=== PATIENT | male | born 1950 | race Caucasian/White ===

== ENCOUNTER 2018-06-19 11:08 | Emergency (ER) | payer MEDICARE, OTHER ==
[~2018-06-19] VITALS: Ht 686.1 cm; Wt 108.0 kg
[~2018-06-19 11:08] MED LIST: ASCO500C15 PO; CHOL100044 PO; DUTA0.5C40 PO; ESTR30GE TP; MULT-1179 PO; NADO20TA PO; OMEG1CAP2 PO; TERA2CAP4 PO; TORS20TA3 PO; [UNRECOGNIZED DRUG - CODE] PO
[2018-06-19 11:36] LABS: BASOPHILS % (AUTO) 0.1 % (0-1); EOSINOPHILS # (AUTO) 0.2 X10'3 (0-0.9); HEMATOCRIT 45.3 % (42.0-52.0); HEMOGLOBIN 15.8 g/dl (14.0-17.9); LYMPHOCYTES # (AUTO) 0.9 X10'3 (1.1-4.8); LYMPHOCYTES % (AUTO) 12.7 % (21-51); MEAN CORPUSCULAR HEMOGLOBIN 31.9 PG (27.0-31.0); MEAN CORPUSCULAR HGB CONC 34.8 % (33.0-36.5); MEAN CORPUSCULAR VOLUME 91.7 FL (78-98); MEAN PLATELET VOLUME 7.8 FL (7.4-10.4); MONOCYTES # (AUTO) 0.6 X10'3 (0-0.9); MONOCYTES % (AUTO) 8.1 % (2-12); NEUTROPHILS # (AUTO) 5.5 X10'3 (1.8-7.7); NEUTROPHILS % (AUTO) 76.1 % (42-75); PLATELET COUNT 225 X10'3 (140-440); RED BLOOD COUNT 4.94 X10'6 (4.70-6.10); RED CELL DISTRIBUTION WIDTH 13.9 % (11.5-14.5); WHITE BLOOD COUNT 7.2 X10'3 (4.5-11.0)
[2018-06-19 11:47] LABS: PARTIAL THROMBOPLASTIN TIME 28 SECONDS (22-32); PROTHROMBIN TIME 10.6 SECONDS (9.0-12.0)
[2018-06-19 12:04] LABS: ALANINE AMINOTRANSFERASE 26 U/L (12-78); ALBUMIN 3.5 G/DL (3.4-5.0); ALBUMIN/GLOBULIN RATIO 1.1 (1.1-1.5); ALKALINE PHOSPHATASE 63 IU/L (46-116); ANION GAP 7 (8-16); ASPARTATE AMINO TRANSFERASE 20 U/L (10-37); BILIRUBIN,TOTAL 0.9 MG/DL (0.1-1.0); BLOOD UREA NITROGEN 14 MG/DL (7-18); BUN/CREATININE RATIO 9.7 (5.4-32.0); CALCIUM 8.8 MG/DL (8.5-10.1); CHLORIDE 101 MMOL/L (99-107); CREATININE 1.44 MG/DL (0.60-1.10); GLUCOSE 97 MG/DL (70-104); MAGNESIUM 1.9 MG/DL (1.5-2.4); POTASSIUM 4.4 MMOL/L (3.5-5.1); SODIUM 132 MMOL/L (135-145); TOTAL PROTEIN 6.7 G/DL (6.4-8.2); eGFR 49 ML/MIN
[2018-06-19 13:27] VITALS: BP 114/64
== END 2018-06-19 13:29 | disposition home or self-care (01) ==
LOC: ER 11:08
DX: R07.89 Other chest pain (principal); I48.91 Unspecified atrial fibrillation; Z98.890 Other specified postprocedural states; Z88.0 Allergy status to penicillin; Z88.2 Allergy status to sulfonamides; Z79.899 Other long term (current) drug therapy
CPT/HCPCS: 36415; 71045; 80053; 83735; 84484; 85025; 85610; 85730; 93005; 99285

== ENCOUNTER 2020-02-02 08:22 | Observation (INO) | payer MEDICARE, OTHER ==
[~2020-02-02] VITALS: Ht 198.1 cm; Wt 102.0 kg
[2020-02-02 08:58] LABS: EOSINOPHILS # (AUTO) 0.3 X10'3 (0-0.9); HEMATOCRIT 42.7 % (42.0-52.0); NEUTROPHILS # (AUTO) 6.5 X10'3 (1.8-7.7)
[2020-02-02 09:00] LABS: BASOPHILS # (AUTO) 0.1 X10'3 (0-0.2); BASOPHILS % (AUTO) 0.9 % (0-1); EOSINOPHILS % (AUTO) 3.3 % (0-6); HEMOGLOBIN 14.8 g/dl (14.0-17.9); LYMPHOCYTES % (AUTO) 12.2 % (21-51); MEAN CORPUSCULAR HEMOGLOBIN 32.4 PG (27.0-31.0); MEAN CORPUSCULAR HGB CONC 34.7 g/dL (33.0-36.5); MEAN CORPUSCULAR VOLUME 93.3 FL (78-98); MEAN PLATELET VOLUME 8.7 FL (7.4-10.4); MONOCYTES # (AUTO) 0.6 X10'3 (0-0.9); MONOCYTES % (AUTO) 7.6 % (2-12); PLATELET COUNT 216 X10'3 (140-440); RED BLOOD COUNT 4.58 X10'6 (4.70-6.10); RED CELL DISTRIBUTION WIDTH 13.5 % (11.5-14.5); WHITE BLOOD COUNT 8.5 X10'3 (4.5-11.0)
[2020-02-02 09:15] LABS: ALANINE AMINOTRANSFERASE 17 U/L (12-78); ALBUMIN 3.6 G/DL (3.4-5.0); ALBUMIN/GLOBULIN RATIO 1.3 (1.1-1.5); ALKALINE PHOSPHATASE 62 IU/L (46-116); ANION GAP 7 (8-16); ASPARTATE AMINO TRANSFERASE 21 U/L (10-37); BILIRUBIN,TOTAL 0.6 MG/DL (0.1-1.0); BLOOD UREA NITROGEN 19 MG/DL (7-18); BUN/CREATININE RATIO 11.7 (5.4-32.0); CALCIUM 8.3 MG/DL (8.5-10.1); CHLORIDE 101 MMOL/L (99-107); CREATININE 1.62 MG/DL (0.60-1.10); GLUCOSE 110 MG/DL (70-104); POTASSIUM 3.9 MMOL/L (3.5-5.1); SODIUM 134 MMOL/L (135-145); TOTAL CARBON DIOXIDE 25.7 MMOL/L (24-32); TOTAL PROTEIN 6.4 G/DL (6.4-8.2); eGFR 42 ML/MIN
[2020-02-02] MEDS ORDERED: normal saline 1000ml 1,000 ML IV ONE (09:30)
[2020-02-02 09:31] LABS: MAGNESIUM 2.2 MG/DL (1.5-2.4)
[2020-02-02] MEDS ORDERED: morphine 2 MG/ML inj. syringe IV PRN ×2 (10:55)
[2020-02-02] MEDS ORDERED: magnesium hydroxide 30ml (MOM) UD suspension PO PRN (10:55)
[2020-02-02] MEDS ORDERED: HYDROcodone/acetaminophen 5mg/325mg tablet PO PRN (10:55)
[2020-02-02] MEDS ORDERED: acetaminophen 325mg tablet PO PRN (10:55)
[2020-02-02] MEDS ORDERED: mag hydrox/Alum hydrox/simeth 30ml oral suspension PO PRN (10:55)
[2020-02-02] MEDS ORDERED: ondansetron/PF 4mg/2ml inj IV PRN (10:55)
[2020-02-02] MEDS ORDERED: MAGNESIUM TAURATE PO (11:51)
[2020-02-02] MEDS ORDERED: [UNRECOGNIZED DRUG - CODE] PO (11:56)
[2020-02-02] MEDS ORDERED: ATEN50TA41 PO (11:58)
[2020-02-02] MEDS ORDERED: APIX5TAB3 PO (11:59)
[2020-02-02] MEDS ORDERED: FURO-149 PO (12:00)
[2020-02-02 12:15] VITALS: BP 105/67
[2020-02-02] MEDS: ESTRADIOL 1 MG TOP SCH (14:40)
[2020-02-02] MEDS: DISOPYRAMIDE PO SCH ×3 (14:40→21:00)
[2020-02-02 15:00] VITALS: BP 115/96
--- NOTE | 2020-02-02 17:52 | NUR ---
Patient in room PCU 3014. I have received report from OSBALDO Fall RN and had the opportunity to ask questions and assume patient care.
[2020-02-02 18:00] VITALS: BP 108/63
--- NOTE | 2020-02-02 18:39 | NUR ---
Problems reprioritized. Patient report given, questions answered & plan of care reviewed with RAYMOND Trujillo.
--- NOTE | 2020-02-02 18:40 | NUR ---
Patient in room PCU 3014. I have received report from Nancy ANDRADE and had the opportunity to ask questions and assume patient care.
[2020-02-02 19:05] LABS: CLARITY,URINE CLEAR (Clear); COLOR,URINE YELLOW (Yellow); GLUCOSE, URINE NEGATIVE (Neg); KETONES,URINE NEGATIVE (Neg); LEUKOCYTE ESTERASE ,URINE NEGATIVE (Neg); NITRITES, URINE NEGATIVE (Neg); OCCULT BLOOD,URINE NEGATIVE (Neg); PROTEIN,URINE NEGATIVE (Neg); UROBILINOGEN,URINE 0.2 E.U/dL (0.2-1.0)
[2020-02-02 19:06] LABS: UA COLLECTION TYPE CLN CATCH MIDSTREAM
[2020-02-02] MEDS: dutasteride 0.5 MG capsule PO SCH (20:00)
[2020-02-02] MEDS: furosemide 40mg tablet PO SCH (20:18)
[2020-02-02] MEDS: apixaban 5mg tablet PO SCH (20:18)
[2020-02-02] MEDS ORDERED: magnesium oxide 400mg tablet PO SCH (20:30)
[2020-02-02] MEDS ORDERED: MAGNESIUM TAURATE PO SCH (21:00)
[2020-02-02 22:00] VITALS: BP 95/61
[2020-02-02] MEDS: magnesium Cl slow-release 64mg tablet PO SCH (22:30)
[2020-02-03 02:00] VITALS: BP 90/54
--- NOTE | 2020-02-03 06:20 | NUR ---
Problems reprioritized. Patient report given, questions answered & plan of care reviewed with Heather ANDRADE.
--- NOTE | 2020-02-03 06:25 | NUR ---
Patient in room PCU 3014A. I have received report from Cassandra ANDRADE and had the opportunity to ask questions and assume patient care.
[2020-02-03 06:30] VITALS: BP 92/49
[2020-02-03 06:30] LABS: ANION GAP 7 (8-16); BLOOD UREA NITROGEN 20 MG/DL (7-18); BUN/CREATININE RATIO 12.2 (5.4-32.0); CALCIUM 8.4 MG/DL (8.5-10.1); CHLORIDE 102 MMOL/L (99-107); CREATININE 1.64 MG/DL (0.60-1.10); GLUCOSE 96 MG/DL (70-104); POTASSIUM 3.6 MMOL/L (3.5-5.1); SODIUM 135 MMOL/L (135-145); TOTAL CARBON DIOXIDE 25.7 MMOL/L (24-32); eGFR 42 ML/MIN
[2020-02-03 06:32] LABS: BASOPHILS # (AUTO) 0.1 X10'3 (0-0.2); BASOPHILS % (AUTO) 0.7 % (0-1); EOSINOPHILS # (AUTO) 0.4 X10'3 (0-0.9); EOSINOPHILS % (AUTO) 4.1 % (0-6); HEMATOCRIT 38.5 % (42.0-52.0); HEMOGLOBIN 13.3 g/dl (14.0-17.9); LYMPHOCYTES # (AUTO) 1.6 X10'3 (1.1-4.8); LYMPHOCYTES % (AUTO) 14.6 % (21-51); MEAN CORPUSCULAR HEMOGLOBIN 32.2 PG (27.0-31.0); MEAN CORPUSCULAR HGB CONC 34.6 g/dL (33.0-36.5); MEAN CORPUSCULAR VOLUME 92.9 FL (78-98); MEAN PLATELET VOLUME 9.5 FL (7.4-10.4); MONOCYTES # (AUTO) 0.9 X10'3 (0-0.9); MONOCYTES % (AUTO) 8.5 % (2-12); NEUTROPHILS # (AUTO) 7.9 X10'3 (1.8-7.7); NEUTROPHILS % (AUTO) 72.1 % (42-75); PLATELET COUNT 216 X10'3 (140-440); RED BLOOD COUNT 4.15 X10'6 (4.70-6.10); RED CELL DISTRIBUTION WIDTH 13.3 % (11.5-14.5)
[2020-02-03] MEDS: magnesium Cl slow-release 64mg tablet PO SCH (07:42)
[2020-02-03] MEDS: furosemide 40mg tablet PO SCH ×2 (07:42→07:46)
[2020-02-03] MEDS: dutasteride 0.5 MG capsule PO SCH (07:43)
[2020-02-03] MEDS: apixaban 5mg tablet PO SCH (07:44)
[2020-02-03] MEDS: DISOPYRAMIDE PO SCH (07:46)
[2020-02-03] MEDS: ESTRADIOL 1 MG TOP SCH (07:46)
[2020-02-03] MEDS ORDERED: ascorbic acid 500mg tablet PO SCH (08:00)
[2020-02-03] MEDS ORDERED: vitamin D (cholecalciferol) 1,000 unit tablet PO SCH (08:00)
[2020-02-03] MEDS ORDERED: Terazosin 1mg capsule PO SCH (08:00)
[2020-02-03] MEDS ORDERED: multivitamins, therapeutics tablet PO SCH (08:00)
--- NOTE | 2020-02-03 09:50 | NUR ---
Per MD, patient stable for discharge home. Discharge packet given to patient and education provided. Pt instructed to not take Atenolol anymore due to heart rate. Dr Garnica said that cardiology office will contact patient on Tuesday to schedule pacemaker procedure. IV removed with catheter intact and tele monitor returned to [facility] [employer] [facility]. All belongings sent with patient. Patient escorted from hospital via wheelchair accompanied by and staff, and driven home via private vehicle.
[2020-02-03] MEDS ORDERED: magnesium Cl slow-release 64mg tablet PO SCH (20:30)
== END 2020-02-03 09:45 | disposition home or self-care (01) ==
LOC: ER 08:24 → ED HOLD 10:53 → UNDOADMOB 11:29 → EDBEDREQ 11:46 → ED HOLD 12:25 → PCU 3S 12:25
PROVIDERS: ADMIT Internal Medicine; ATTEND Internal Medicine
DX: R00.1 Bradycardia, unspecified (principal); R42 Dizziness and giddiness; I12.9 Hypertensive chronic kidney disease with stage 1 through stage 4 chronic kidney disease, or unspecified chronic kidney disease; N18.9 Chronic kidney disease, unspecified; I48.0 Paroxysmal atrial fibrillation; G47.00 Insomnia, unspecified; N40.0 Benign prostatic hyperplasia without lower urinary tract symptoms; Z79.01 Long term (current) use of anticoagulants; Z79.899 Other long term (current) drug therapy; Z88.0 Allergy status to penicillin; Z88.2 Allergy status to sulfonamides; Z91.048 Other nonmedicinal substance allergy status
CPT/HCPCS: 36415; 71045; 80048; 80053; 81003; 83735; 83880; 84443; 84484; 85025; 85610; 93005; 96360; 99285; G0378; J7030

== ENCOUNTER 2021-02-07 10:27 | Emergency (ER) | payer MEDICARE, OTHER ==
[~2021-02-07] VITALS: Ht 195.6 cm; Wt 102.8 kg
[~2021-02-07 10:27] MED LIST changes: +APIX5TAB3 PO; -ASCO500C15 PO; +ASCO500C18 PO; +FURO-149 PO; +MAGNESIUM TAURATE PO; -NADO20TA PO; -OMEG1CAP2 PO; -TORS20TA3 PO; +[UNRECOGNIZED DRUG - CODE] PO; -[UNRECOGNIZED DRUG - CODE] PO
[2021-02-07] MEDS ORDERED: metoprolol tartrate 50mg tablet PO ONE (11:00)
[2021-02-07] MEDS ORDERED: metoprolol tartrate 25mg tablet PO ONE (11:10)
[2021-02-07 11:44] LABS: BASOPHILS # (AUTO) 0.1 X10'3 (0-0.2); BASOPHILS % (AUTO) 0.9 % (0-1); EOSINOPHILS # (AUTO) 0.3 X10'3 (0-0.9); EOSINOPHILS % (AUTO) 3.8 % (0-6); LYMPHOCYTES # (AUTO) 0.9 X10'3 (1.1-4.8); LYMPHOCYTES % (AUTO) 13.5 % (21-51); MEAN CORPUSCULAR HEMOGLOBIN 30.6 PG (27.0-31.0); MEAN CORPUSCULAR VOLUME 90.1 FL (78-98); MEAN PLATELET VOLUME 8.4 FL (7.4-10.4); MONOCYTES # (AUTO) 0.5 X10'3 (0-0.9); NEUTROPHILS # (AUTO) 4.8 X10'3 (1.8-7.7); NEUTROPHILS % (AUTO) 73.8 % (42-75); PLATELET COUNT 221 X10'3 (140-440); RED BLOOD COUNT 4.89 X10'6 (4.70-6.10); RED CELL DISTRIBUTION WIDTH 13.5 % (11.5-14.5); WHITE BLOOD COUNT 6.5 X10'3 (4.5-11.0)
[2021-02-07 11:56] LABS: ALANINE AMINOTRANSFERASE 19 U/L (12-78); ALBUMIN 3.6 G/DL (3.4-5.0); ALBUMIN/GLOBULIN RATIO 1.2 (1.1-1.5); ALKALINE PHOSPHATASE 73 IU/L (46-116); ANION GAP 8 (8-16); ASPARTATE AMINO TRANSFERASE 17 U/L (10-37); BILIRUBIN,TOTAL 0.6 MG/DL (0.1-1.0); BLOOD UREA NITROGEN 12 MG/DL (7-18); CALCIUM 8.7 MG/DL (8.5-10.1); CHLORIDE 104 MMOL/L (99-107); CREATININE 1.34 MG/DL (0.60-1.10); GLUCOSE 104 MG/DL (70-104); POTASSIUM 4.3 MMOL/L (3.5-5.1); SODIUM 140 MMOL/L (135-145); TOTAL CARBON DIOXIDE 28.1 MMOL/L (24-32); TOTAL PROTEIN 6.7 G/DL (6.4-8.2); eGFR 53 ML/MIN
[2021-02-07] MEDS ORDERED: METO50TA7 PO (12:38)
[2021-02-07 12:51] VITALS: BP 124/79
== END 2021-02-07 12:54 | disposition home or self-care (01) ==
LOC: ER 10:27
DX: I48.92 Unspecified atrial flutter (principal); R42 Dizziness and giddiness; R20.0 Anesthesia of skin; I48.91 Unspecified atrial fibrillation; G47.30 Sleep apnea, unspecified; G47.00 Insomnia, unspecified; Z85.9 Personal history of malignant neoplasm, unspecified; Z98.890 Other specified postprocedural states; Z88.0 Allergy status to penicillin; Z88.2 Allergy status to sulfonamides; Z91.041 Radiographic dye allergy status; Z79.899 Other long term (current) drug therapy
CPT/HCPCS: 36415; 71046; 80053; 84443; 85025; 93005; 99285

== ENCOUNTER 2021-03-11 16:27 | Emergency (ER) | payer MEDICARE, OTHER ==
[~2021-03-11] VITALS: Ht 195.6 cm; Wt 102.0 kg
[2021-03-11 16:33] VITALS: BP 103/74
[2021-03-11 17:16] LABS: BASOPHILS % (AUTO) 0.6 % (0-1); EOSINOPHILS # (AUTO) 0.2 X10'3 (0-0.9); EOSINOPHILS % (AUTO) 2.6 % (0-6); HEMATOCRIT 47.9 % (42.0-52.0); HEMOGLOBIN 15.9 g/dl (14.0-17.9); LYMPHOCYTES # (AUTO) 1.1 X10'3 (1.1-4.8); LYMPHOCYTES % (AUTO) 15.2 % (21-51); MEAN CORPUSCULAR HEMOGLOBIN 30.6 PG (27.0-31.0); MEAN CORPUSCULAR HGB CONC 33.2 g/dL (33.0-36.5); MEAN CORPUSCULAR VOLUME 92.1 FL (78-98); MEAN PLATELET VOLUME 8.8 FL (7.4-10.4); MONOCYTES # (AUTO) 0.6 X10'3 (0-0.9); MONOCYTES % (AUTO) 8.4 % (2-12); NEUTROPHILS # (AUTO) 5.2 X10'3 (1.8-7.7); NEUTROPHILS % (AUTO) 73.2 % (42-75); PLATELET COUNT 217 X10'3 (140-440); RED CELL DISTRIBUTION WIDTH 14.1 % (11.5-14.5); WHITE BLOOD COUNT 7.1 X10'3 (4.5-11.0)
[2021-03-11 17:27] LABS: ALANINE AMINOTRANSFERASE 31 U/L (12-78); ALBUMIN 3.9 G/DL (3.4-5.0); ALBUMIN/GLOBULIN RATIO 1.3 (1.1-1.5); ALKALINE PHOSPHATASE 71 IU/L (46-116); ANION GAP 10 (8-16); ASPARTATE AMINO TRANSFERASE 26 U/L (10-37); BILIRUBIN,TOTAL 0.6 MG/DL (0.1-1.0); BLOOD UREA NITROGEN 23 MG/DL (7-18); CALCIUM 8.7 MG/DL (8.5-10.1); CHLORIDE 100 MMOL/L (99-107); CREATININE 1.91 MG/DL (0.60-1.10); GLUCOSE 114 MG/DL (70-104); POTASSIUM 4.3 MMOL/L (3.5-5.1); SODIUM 137 MMOL/L (135-145); TOTAL CARBON DIOXIDE 26.8 MMOL/L (24-32); eGFR 35 ML/MIN
== END 2021-03-11 21:55 | disposition left against medical advice (07) ==
LOC: ER 16:28
DX: R00.1 Bradycardia, unspecified (principal); Z53.21 Procedure and treatment not carried out due to patient leaving prior to being seen by health care provider
CPT/HCPCS: 36415; 71045; 80053; 83880; 84484; 85025; 93005

== ENCOUNTER 2022-04-28 09:42 | Emergency (ER) | payer MEDICARE, OTHER ==
[~2022-04-28] VITALS: Ht 198.1 cm; Wt 104.1 kg
[2022-04-28 10:16] LABS: BASOPHILS # (AUTO) 0.1 X10'3 (0-0.2); BASOPHILS % (AUTO) 0.8 % (0-1); EOSINOPHILS # (AUTO) 0.3 X10'3 (0-0.9); EOSINOPHILS % (AUTO) 4.5 % (0-6); HEMATOCRIT 45.6 % (42.0-52.0); HEMOGLOBIN 15.6 g/dl (14.0-17.9); LYMPHOCYTES # (AUTO) 0.6 X10'3 (1.1-4.8); LYMPHOCYTES % (AUTO) 10.6 % (21-51); MEAN CORPUSCULAR HGB CONC 34.2 g/dL (33.0-36.5); MEAN CORPUSCULAR VOLUME 90.8 FL (78-98); MONOCYTES # (AUTO) 0.5 X10'3 (0-0.9); MONOCYTES % (AUTO) 8.7 % (2-12); NEUTROPHILS # (AUTO) 4.6 X10'3 (1.8-7.7); NEUTROPHILS % (AUTO) 75.4 % (42-75); PLATELET COUNT 252 X10'3 (140-440); RED BLOOD COUNT 5.02 X10'6 (4.70-6.10); RED CELL DISTRIBUTION WIDTH 14.2 % (11.5-14.5); WHITE BLOOD COUNT 6.1 X10'3 (4.5-11.0)
[2022-04-28 10:31] LABS: ALANINE AMINOTRANSFERASE 18 U/L (12-78); ALBUMIN 3.7 G/DL (3.4-5.0); ALBUMIN/GLOBULIN RATIO 1.2 (1.1-1.5); ALKALINE PHOSPHATASE 81 IU/L (46-116); ANION GAP 7 (8-16); ASPARTATE AMINO TRANSFERASE 21 U/L (10-37); BILIRUBIN,TOTAL 0.9 MG/DL (0.1-1.0); BLOOD UREA NITROGEN 10 MG/DL (7-18); BUN/CREATININE RATIO 7.5 (5.4-32.0); CALCIUM 8.7 MG/DL (8.5-10.1); CHLORIDE 98 MMOL/L (99-107); CREATININE 1.34 MG/DL (0.60-1.10); GLUCOSE 92 MG/DL (70-104); POTASSIUM 4.2 MMOL/L (3.5-5.1); SODIUM 132 MMOL/L (135-145); TOTAL CARBON DIOXIDE 27.2 MMOL/L (24-32); TOTAL PROTEIN 6.8 G/DL (6.4-8.2); eGFR 52 ML/MIN
[2022-04-28 10:58] VITALS: BP 116/79
[2022-04-28] MEDS ORDERED: APIX5TAB3 PO (11:03)
== END 2022-04-28 11:13 | disposition home or self-care (01) ==
LOC: ER 09:43
DX: I48.91 Unspecified atrial fibrillation (principal); I50.9 Heart failure, unspecified; Z85.9 Personal history of malignant neoplasm, unspecified; Z98.890 Other specified postprocedural states; Z88.0 Allergy status to penicillin; Z88.2 Allergy status to sulfonamides; Z88.8 Allergy status to other drugs, medicaments and biological substances; Z79.899 Other long term (current) drug therapy
CPT/HCPCS: 36415; 71045; 80053; 83880; 84484; 85025; 93005; 99285

== ENCOUNTER 2025-05-05 12:38 | Emergency (ER) | payer MEDICARE, OTHER ==
[~2025-05-05] VITALS: Ht 198.1 cm; Wt 105.5 kg
[~2025-05-05 12:38] MED LIST changes: +AMLO5TAB5 PO; -DUTA0.5C40 PO; +EST1T PO; -ESTR30GE TP; -FURO-149 PO; +TELM40TA2 PO; -TERA2CAP4 PO; +UBIQ100C PO; +[UNRECOGNIZED DRUG - CODE] PO
[2025-05-05 12:51] VITALS: TEMP 97.5
--- NOTE | 2025-05-05 13:32 | ELECTROCARDIOGRAPH REPORT ---
[facility] Test Date: 2025-05-05 Test Time: 13:28:02 Pat Name: PATRICIO VILLANUEVA Department: [facility]ER Patient ID: [facility]-[id number] Room: Gender: M Director Emergency Department: : 1950 Requested By: MINA RODRÍGUEZ Order Number: [id number] Reading MD: Measurements Intervals Clune Rate: 58 P: -52 VT: 342 QRS: -71 QRSD: 118 T: 75 QT: 423 QTc: 416 Interpretive Statements Sinus or ectopic atrial bradycardia Atrial premature complexes Prolonged VT interval Incomplete RBBB and LAFB Please click the below link to view image of tracing.
[2025-05-05 13:41] LABS: BASOPHILS # (AUTO) 0.1 X10'3 (0-0.2); BASOPHILS % (AUTO) 0.7 % (0-1); EOSINOPHILS # (AUTO) 0.2 X10'3 (0-0.9); EOSINOPHILS % (AUTO) 1.7 % (0-6); HEMATOCRIT 44.4 % (42.0-52.0); HEMOGLOBIN 15.5 g/dl (14.0-17.9); LYMPHOCYTES # (AUTO) 0.6 X10'3 (1.1-4.8); LYMPHOCYTES % (AUTO) 7.1 % (21-51); MEAN CORPUSCULAR HEMOGLOBIN 32.7 PG (27.0-31.0); MEAN CORPUSCULAR VOLUME 93.5 FL (78-98); MEAN PLATELET VOLUME 8.7 FL (7.4-10.4); MONOCYTES # (AUTO) 0.6 X10'3 (0-0.9); MONOCYTES % (AUTO) 7.1 % (2-12); NEUTROPHILS # (AUTO) 7.3 X10'3 (1.8-7.7); NEUTROPHILS % (AUTO) 83.4 % (42-75); PLATELET COUNT 185 X10'3 (140-440); RED BLOOD COUNT 4.75 X10'6 (4.70-6.10); RED CELL DISTRIBUTION WIDTH 13.3 % (11.5-14.5); WHITE BLOOD COUNT 8.7 X10'3 (4.5-11.0)
[2025-05-05 14:03] LABS: ALBUMIN 3.7 G/DL (3.4-5.0); ANION GAP 6 (8-16); BLOOD UREA NITROGEN 9 MG/DL (7-18); BUN/CREATININE RATIO 7.3 (10.0-20.0); CALCIUM 8.2 MG/DL (8.5-10.1); CHLORIDE 96 MMOL/L (99-107); CREATININE 1.23 MG/DL (0.60-1.10); GLUCOSE 91 MG/DL (70-104); POTASSIUM 4.3 MMOL/L (3.5-5.1); PRO BRAIN NATRIURETIC PEPTIDE 520 PG/ML (0-450); SODIUM 130 MMOL/L (135-145); TOTAL CARBON DIOXIDE 28.4 MMOL/L (24-32); eCRCL 66 ML/MIN; eGFR 57 ML/MIN
--- NOTE | 2025-05-05 14:03 | RADIOLOGY REPORT ---
CHEST RADIOGRAPH Indication: CP Technique: Single frontal view of the chest was obtained COMPARISON: DI CHEST,SINGLE VIEW on DOS: 10/15/24, CHEST,SINGLE VIEW on DOS: 04/28/22, CHEST,SINGLE VIE W on DOS: 03/11/21, CHEST,SINGLE VIEW on DOS: 02/02/20 FINDINGS: Lines and Tubes: None Lungs: Clear Pleura: No effusion. No pneumothorax. Cardiomediastinal contours: Unremarkable Bones: Unremarkable IMPRESSION: No acute disease.
--- NOTE | 2025-05-05 14:14 | Physician Documentation ---
History of Present Illness ~ Chief Complaint: Shortness of Breath Stated Complaint: UPPER RESP INFECTION Time Seen by MD: 14:52 OK to notify your PCP?: Yes Primary Medical Doctor: Dr. Radha Botello Source: patient Mode of Arrival: POV Exam Limitations: no limitations HPI 75-year-old male presents with productive cough and shortness of breath for the past 3 weeks. He states he has been having a productive cough which was having clear sputum and has now turned to a yellow sputum. No history of smoking, no COPD or asthma. History of atrial fibrillation. MD history: Patient presents complaining of URI symptoms over the last three weeks. he reports a cough which was initially productive of clear phlegm and now turning slightly yellow, and has some shortness of breath, feels that he has to sit up to sleep comfortably because lying flat creates more cough and some wheezing. He does have some lower extremity edema which he reports comes and goes and for which he takes a diuretic. When asked about fever the patient reports that he was flushed the other day but does not know if his temperature was elevated. He denies any associated chest pain, but complains of rhinorrhea and significant nasal congestion. He denies any sore throat or ear pain. Patient has been taking Sudafed Robitussin DM and TheraFlu for his symptoms. Medication Reconciliation Allergies: Coded Allergies: Iodinated Contrast Media (Verified Allergy, Intermediate, RASH, 05/05/25) Penicillins (Unverified Allergy, Unknown, 05/05/25) Sulfa (Sulfonamide Antibiotics) (Verified Allergy, Unknown, 05/05/25) Scheduled Amlodipine Besylate (Norvasc), 1 TAB PO BID, (Reported) Apixaban (Eliquis), 1 TAB PO Q12H, (Reported) Ascorbic Acid (Vitamin C), 1 CAP PO DAILY, (Reported) Azithromycin (Zithromax), 250 MG PO DAILY Cholecalciferol (Vitamin D), 2,000 UNIT PO DAILY, (Reported) Disopyramide Phosphate (Norpace Cr), 1 CAPSULE PO QID, (Reported) Estradiol* (Estrace*), 1 TAB PO BID, (Reported) Multivitamins,Therapeutic* (Theragran-M*), 1 EACH PO DAILY, (Reported) Pyrroloquinoline Quinone Disod (Pqq), 20 MG PO BID, (Reported) Telmisartan (Micardis), 1 TAB PO BID, (Reported) Ubiquinol (Ubiquinol), 1 CAP PO DAILY, (Reported) Scheduled PRN Albuterol Sulfate (Ventolin Hfa), 2 PUFFS INH Q4HPRN PRN for wheezing [Magnesium Taurate], 10.5 MG PO for IRREGULAR HR, (Reported) Past Medical History Past Medical History: Arrhythmia, Atrial Fibrillation, Hypertension, Sleep Apnea, BPH, *CANCER* (Prostate); Denies: Congestive Heart Failure Other Past Medical History: Pleural effusion Past Surgical History: heart valve surgery, other Other Past Surgical History: hernia repair, maze procedure Smoking Status: Never smoker Alcohol Use: Rarely Drug Use: none Lives with: Family Lives In: Home Occupation: employed Review of Systems All Other Systems at this time: Reviewed and Negative Physical Exam Vital Signs: Temperature: 97.5, Source: Temporal, Heart Rate: 65, Respiratory Rate: 22, BP: 128/81, Pulse Oximetry: 99, Weight: 105.450 Oxygen Flow Rate: 0 Physical Exam General: Alert, no distress. HEENT: No injection, moist mucous membranes. Neck: Full range of motion. Respiratory: No respiratory distress, equal chest rise and fall. Crackles in the bilateral bases. Chest: No accessory muscle use. Cardiovascular: Regular rate and rhythm. Gastrointestinal: Nondistended. Extremities: Normal range of motion, no deformity. Neurologic: Oriented x4. Psychiatric: Normal mood and affect. Skin: Normal color, warm and dry. MD exam: General: Pt is awake, alert, oriented x4 in no acute distress and well appearing. Head: Normocephalic and atraumatic. Eyes: Conjunctiva normal. ENT: Mucous membranes moist. Some nasal congestion, no rhinorrhea noted. Neck: Supple. Chest: There is no accessory muscle use or retractions. No cough appreciated. There are initially rhonchi in bilateral lung bases, but they clear with cough. There is some mild end expiratory wheezing in the left base. Cardiac: Regular rate and rhythm without murmurs, gallops or rubs. Palpation of the chest wall is normal. Abd: Soft, nondistended, nontender, with normoactive bowel sounds. No guarding or rebound. Extremities: Within normal limits without cyanosis, clubbing. Trace edema Skin: Omar, warm and dry with no significant rash appreciated. Neuro: Cranial nerves II-XII grossly intact. The gait is normal. Progress Results/Orders Results/Orders Orders - MINA RODRÍGUEZ MD Chest,Single View (05/05/25 13:11) Monitor (05/05/25 12:54) Saline Lock (05/05/25 12:54) Oxygen (05/05/25 12:54) Hs Troponin I W Calculations (05/05/25 15:54) Completed Orders - MINA RODRÍGUEZ MD Chest,Single View (05/05/25 13:11) Cbc/Diff (05/05/25 12:54) BMP (05/05/25 12:54) PBNP (05/05/25 12:54) Electrocardiogram (05/05/25 12:54) Hs Troponin I W Calculations (05/05/25 12:54) Hs Troponin I W Calculations (05/05/25 14:54) Vital Signs 05/05/25 05/05/25 05/05/25 12:51 14:13 14:19 Temp 97.5 Pulse 65 80 Resp 22 18 19 B/P (MAP) 128/81 134/88 (103) Pulse Ox 99 97 O2 Flow Rate 0 0 Laboratory Tests Test 05/05/25 13:29 05/05/25 15:10 White Blood Count 8.7 Red Blood Count 4.75 Hemoglobin 15.5 Hematocrit 44.4 Mean Corpuscular Volume 93.5 Mean Corpuscular Hemoglobin 32.7 H Mean Corpuscular Hemoglobin Concent 35.0 Red Cell Distribution Width 13.3 Platelet Count 185 Mean Platelet Volume 8.7 Neutrophils (%) (Auto) 83.4 H Lymphocytes (%) (Auto) 7.1 L Monocytes (%) (Auto) 7.1 Eosinophils (%) (Auto) 1.7 Basophils (%) (Auto) 0.7 Neutrophils # (Auto) 7.3 Lymphocytes # (Auto) 0.6 L Monocytes # (Auto) 0.6 Eosinophils # (Auto) 0.2 Basophils # (Auto) 0.1 CBC Comment Sodium Level 130 L Potassium Level 4.3 Chloride Level 96 L Carbon Dioxide Level 28.4 Anion Gap 6 L Blood Urea Nitrogen 9 Creatinine 1.23 H Estimated GFR/1.73 m2 57 BUN/Creatinine Ratio 7.3 L Glucose Level 91 Calcium Level 8.2 L Troponin I High Sensitivity 5 6 Pro-B-Type Natriuretic Peptide 520 H Albumin 3.7 Chemistry Comments Troponin I High Sens Percent Delta 20 Troponin I Hi Sens Absolute Change 1 Departure Time of Disposition: 16:15 Disposition: 01 HOME / SELF CARE / HOMELESS Impression: Primary Impression: Bronchitis Additional Impression: Acute upper respiratory infection Condition: Stable Discharge Instructions: Upper Respiratory Infection, Adult Additional Instructions: Please follow up with your regular physician. Take the antibiotics as prescribed. Return to the emergency department immediately if fever, difficulty breathing, or any other concerns. Referrals: NO PRIMARY CARE PROVIDER (PCP) Prescriptions Doxycycline Monohydrate (Doxycycline) 150 Mg Tablet 1 TAB PO Q12H for 10 Days, #20 TAB Prov: MINA RODRÍGUEZ MD 05/05/25 Albuterol Sulfate (Ventolin Hfa) 90 Mcg Hfa.aer.ad 2 PUFFS INH Q4HPRN PRN for wheezing for 30 Days, #18 GM 0 Refills Prov: MINA RODRÍGUEZ MD 05/05/25 Education Educated: Patient, Family Educated regarding: diagnosis, treatment Additional Comment Medical Screen Exam This patient recieved a medical screening examination. After reviewing the individual's medical complaints with presenting symptoms and performing an appropriate physical examination, it was determined that no immediate life- threatening emergency medical condition is present. This individual is also not a women having contractions. POLO PARKER May 05, 2025 14:14 MINA RODRÍGUEZ MD May 05, 2025 15:12
[2025-05-05] MEDS ORDERED: ALBU18HF2 INH (16:16)
[2025-05-05] MEDS ORDERED: AZIT-164 PO (16:16)
[2025-05-05 16:21] VITALS: BP 123/90; PULSE 73; RESP 20; O2SAT 98
[2025-05-05] MEDS ORDERED: DOXY150T3 PO (16:23)
== END 2025-05-05 16:27 | disposition home or self-care (01) ==
LOC: ER 12:39
DX: J40 Bronchitis, not specified as acute or chronic (principal); J06.9 Acute upper respiratory infection, unspecified; G47.30 Sleep apnea, unspecified; I10 Essential (primary) hypertension; I48.91 Unspecified atrial fibrillation; Z88.0 Allergy status to penicillin; Z88.2 Allergy status to sulfonamides; Z91.041 Radiographic dye allergy status; Z98.890 Other specified postprocedural states
CPT/HCPCS: 36415; 71045; 80048; 83880; 84484; 85025; 93005; 99285